=== PATIENT | male | born 1965 | race Two or more races ===

== ENCOUNTER 2025-08-09 05:34 | Emergency (ER) | payer OTHER ==
[~2025-08-09] VITALS: Ht 172.7 cm; Wt 104.3 kg
[2025-08-09] MEDS ORDERED: [UNRECOGNIZED DRUG - OTHER] (06:02)
[2025-08-09] MEDS ORDERED: DEXAMETHASONE SODIUM PHOSPHATE 4 MG/ML VIAL IM STA (07:24)
[2025-08-09] MEDS ORDERED: GUAIFENESIN 200 MG/10 ML BLIST.PACK PO ONE (07:30)
[2025-08-09] MEDS ORDERED: ACETAMINOPHEN 500 MG GEL..CAP PO ONE ×2 (07:30→08:26)
[2025-08-09] MEDS ORDERED: DEXAMETHASONE SODIUM PHOSPHATE 4 MG/ML VIAL ONE (08:26)
[2025-08-09] MEDS ORDERED: GUAIFENESIN/DEXTROMETHORPHAN 100MG/10ML BLIST.PACK PO ONE (08:27)
[2025-08-09 08:55] LABS: BASO % 0.7 % (0.1-1.2); EOS # 0.14 (0.04-0.54); EOS % 1.7 % (0.7-7.0); LYMPH # 2.34 (1.18-3.74); LYMPH % 28.3 % (19.3-53.1); MEAN PLATELET VOLUME 9.20 fl (9.4-12.4); MONO # 0.92 (0.24-0.82); MONO % 11.1 % (4.7-12.5); NEUT # 4.79 (1.56-6.13); NEUT % 57.8 % (34.0-71.1); RED CELL DISTRIBUTION WIDTH 12.7 % (11.6-14.4)
[2025-08-09 09:22] LABS: COVID-19 AG NEGATIVE (NEGATIVE)
[2025-08-09] MEDS ORDERED: ZITHROMAX200 MG PO (11:26)
[2025-08-09] MEDS ORDERED: CEPACOL SORE T1 EAC1 PO (11:26)
== END 2025-08-09 14:38 | disposition home or self-care (01) ==
LOC: ER 05:34
PROVIDERS: General Practice
DX: J06.9 Acute upper respiratory infection, unspecified (principal); R05.9 Cough, unspecified; Z20.822 Contact with and (suspected) exposure to COVID-19; I10 Essential (primary) hypertension; B20 Human immunodeficiency virus [HIV] disease; Z88.0 Allergy status to penicillin